=== PATIENT | male | born 1975 | race Caucasian/White ===

== ENCOUNTER 2020-08-13 16:06 | Emergency (ER) | payer OTHER ==
[~2020-08-13] VITALS: Ht 180.3 cm; Wt 93.4 kg
[2020-08-13 16:15] VITALS: BP 150/107
--- NOTE | 2020-08-13 16:28 | NUR ---
LOW BACK, RIGHT BUTTOCK PAIN GOING DOWN RIGHT LEG FOR TWO DAYS. 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
== END 2020-08-13 17:21 ==
LOC: ED 17:15
DX: M54.41 Lumbago with sciatica, right side (principal); F17.200 Nicotine dependence, unspecified, uncomplicated
CPT/HCPCS: 99281; 99283

== ENCOUNTER 2020-10-08 08:07 | Emergency (ER) | payer OTHER ==
[~2020-10-08] VITALS: Ht 180.3 cm; Wt 94.2 kg
[2020-10-08 08:10] VITALS: BP 180/101
== END 2020-10-08 08:59 | disposition home or self-care (01) ==
LOC: ED 08:19
DX: H60.12 Cellulitis of left external ear (principal); I10 Essential (primary) hypertension
CPT/HCPCS: 99281; 99283

== ENCOUNTER 2021-04-10 16:28 | Emergency (ER) | payer OTHER ==
[~2021-04-10] VITALS: Ht 180.3 cm; Wt 93.9 kg
--- NOTE | 2021-04-10 16:40 | NUR ---
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
--- NOTE | 2021-04-10 17:10 | NUR ---
SAME TRIAGE NOTE. PT REPORTS CONTINUED L ARM PAIN, POINTS TO L INNER WRIST AND FOREARM. PT DENIES CHEST PAIN AT THIS TIME. STATES HE'S BEEN OFF HIS BP MEDS FOR YEARS AND HASN'T SEEN A MD. REPORTS USING IV METH. R HAND SWOLLEN AND RED FROM "A MISS". ALSO REPORTS DRINKING SEVERAL TIMES DAILY. ERP AT BS NOW.
[2021-04-10 17:50] LABS: BASOPHILS % (AUTO) 1 % (0-1); EOSINOPHILS % (AUTO) 4 % (1-7); LYMPHOCYTES % (AUTO) 34 % (22-44); MEAN CORPUSCULAR HEMOGLOBIN 29.1 pg (27.5-34.5); MEAN CORPUSCULAR HGB CONC 34.3 g/dL (33.2-36.2); MEAN PLATELET VOLUME 8.2 fL (7.4-10.4); MONOCYTES % (AUTO) 6 % (2-9); NEUTROPHILS % (AUTO) 55 % (42-75); PLATELET COUNT 189 x10^3/uL (130-400); RED BLOOD COUNT 5.62 x10^6/uL (4.38-5.82); RED CELL DISTRIBUTION WIDTH 14.3 % (9.4-14.8)
[2021-04-10 18:02] LABS: ALANINE AMINOTRANSFERASE 41 U/L (12-78); ALBUMIN 3.9 g/dL (3.4-5.0); ANION GAP 9 mmol/L (5-15); CALCIUM 8.2 mg/dL (8.5-10.1); CHLORIDE 107 mmol/L (98-107)
[2021-04-10 18:06] LABS: ALKALINE PHOSPHATASE 93 U/L (45-117); BILIRUBIN,TOTAL 0.4 mg/dL (0.2-1.0); TOTAL PROTEIN 7.4 g/dL (6.4-8.2); TROPONIN I < 0.015 ng/mL (0.000-0.045)
[2021-04-10 18:14] VITALS: BP 148/94
--- NOTE | 2021-04-10 19:05 | NUR ---
D/C INSTRUCTIONS & F/U APPT'S RV'WD WITH PT, HE VERBALIZES UNDERSTANDING. INSTRUCTED TO RETURN TO ED FOR WORSENING SYMPTOMS. INFORMATION PROVIDED ON [employer] AND PCP REFERRAL GIVEN. PT AMBULATED OUT OF ED WITH WITHOUT DIFFICULTY.
== END 2021-04-10 19:06 | disposition home or self-care (01) ==
LOC: ED 18:34
DX: R07.89 Other chest pain (principal); R20.2 Paresthesia of skin; R00.0 Tachycardia, unspecified; I10 Essential (primary) hypertension
CPT/HCPCS: 36415; 71045; 80053; 84484; 85025; 93005; 99283; 99285

== ENCOUNTER 2021-05-31 16:01 | Emergency (ER) | payer OTHER ==
[2021-05-31 16:03] VITALS: BP 171/95
--- NOTE | 2021-05-31 16:14 | NUR ---
PT WELDS AT WORK, TODAY WITH RT EYE IRRITATION, PAIN AND REDNESS.
[2021-05-31] MEDS ORDERED: FLUORESCEIN OPHTHALMIC 1 MG STRIP ONE (16:50)
[2021-05-31] MEDS ORDERED: PROPARACAINE OPHTH 0.5%, 15ML ONE (16:53)
--- NOTE | 2021-05-31 16:55 | NUR ---
MEDS PULLED FOR ED MD FOR EYE EXAM.
[2021-05-31] MEDS ORDERED: FLUORESCEIN/BENOXINATE 5 ML DROPS OP ONE (17:00)
[2021-05-31] MEDS ORDERED: PROPARACAINE OPHTH 0.5%, 15ML EACHEYE ONE (17:00)
[2021-05-31] MEDS ORDERED: CIPROFLOXACIN OPHTH SOLN 0.3%, 5ML RIGHTEYE ONE (17:30)
[2021-05-31] MEDS ORDERED: VALACYCLOVIR 500MG TABLET PO SCH (17:30)
[2021-05-31] MEDS ORDERED: PLEASE ENTER WEIGHT MC SCH (17:30)
--- NOTE | 2021-05-31 17:46 | NUR ---
CALL TO PHARMACY REGARDING EYE DROPS THAT HAD BEEN REQUESTED VIA YELLOW SLIP. [employer]ION SERVICE SPECIALIST TO SEND DROPS.
--- NOTE | 2021-05-31 17:52 | NUR ---
NEW REQUEST SENT TO PHARMACY FOR ADDED ON MEDICATION. PT SITTING UP IN CHAIR, NAD NOTED.
== END 2021-05-31 18:12 | disposition home or self-care (01) ==
LOC: ED 16:27
DX: H10.021 Other mucopurulent conjunctivitis, right eye (principal); I10 Essential (primary) hypertension; F17.200 Nicotine dependence, unspecified, uncomplicated
CPT/HCPCS: 99283